=== PATIENT | male | born 1990 | race Caucasian/White ===

== ENCOUNTER 2022-03-21 21:14 | Emergency (ER) | payer SELFPAY ==
[~2022-03-21] VITALS: Ht 167.6 cm; Wt 82.0 kg
[2022-03-21 21:15] VITALS: BP 140/70
[2022-03-21] MEDS ORDERED: IPRATROPIUM BROMIDE (0.02%) 0.5MG/2.5ML NEB HHN STA (22:03)
[2022-03-21] MEDS ORDERED: ALBUTEROL (0.083%) 2.5MG/3ML NEB HHN STA (22:03)
[2022-03-21] MEDS ORDERED: PREDNISONE 20MG TABLET PO STA (22:03)
[2022-03-21] MEDS ORDERED: ALBU6.7H9 INH (23:44)
[2022-03-21] MEDS ORDERED: MED4 MT (23:44)
== END 2022-03-22 00:05 | disposition home or self-care (01) ==
LOC: ER 21:14
DX: J45.901 Unspecified asthma with (acute) exacerbation (principal); Z88.6 Allergy status to analgesic agent
CPT/HCPCS: 94640; 99283; Z7610